=== PATIENT | male | born 1965 | race Caucasian/White ===

== ENCOUNTER 2020-01-19 08:55 | Emergency (ER) | payer OTHER ==
[~2020-01-19] VITALS: Ht 170.2 cm; Wt 104.8 kg
[2020-01-19 08:56] VITALS: BP 152/89
[2020-01-19] MEDS ORDERED: LIDOCAINE-MPF 1%, 5ML ONE (09:16)
[2020-01-19] MEDS ORDERED: DIPH,PERTUSS(ACELL),TET VAC/PF 0.5 ML IM-VACC ONE ×2 (09:17→09:30)
[2020-01-19] MEDS ORDERED: PLEASE ENTER ALLERGIES MC SCH (09:30)
[2020-01-19] MEDS ORDERED: LIDOCAINE-MPF 1%, 5ML INFIL ONE (09:30)
== END 2020-01-19 10:31 ==
LOC: ED 09:36
DX: S81.812A Laceration without foreign body, left lower leg, initial encounter (principal); X58.XXXA Exposure to other specified factors, initial encounter; Y93.89 Activity, other specified; Y92.69 Other specified industrial and construction area as the place of occurrence of the external cause; Y99.0 Civilian activity done for income or pay
CPT/HCPCS: 12031; 90471; 90715; 99284